=== PATIENT | female | born 1980 | race Two or more races ===

== ENCOUNTER 2023-08-09 05:48 | Day surgery (SDC) | payer OTHER ==
[2023-08-09] MEDS ORDERED: CEFAZOLIN SODIUM 1,000 MG VIAL ONE ×2 (07:03→07:41)
[2023-08-09] MEDS ORDERED: ENOXAPARIN SODIUM 40 MG/0.4 ML SYRINGE SUBCUTANEO ONE ×2 (07:28→11:15)
[2023-08-09] MEDS ORDERED: EPINEPHRINE HCL/PF 1 MG/ML AMPUL ONE (07:35)
[2023-08-09] MEDS ORDERED: LIDOCAINE HCL/EPINEPHRINE 10MG/ML 1% 50ML IJ ONE ×5 (07:44→11:15)
[2023-08-09] MEDS ORDERED: EPINEPHRINE HCL/PF 1 MG/ML AMPUL IJ ONE (11:15)
[2023-08-09] MEDS ORDERED: CEFAZOLIN SODIUM 1,000 MG in 0.9 % SODIUM CHLORIDE 50 ML IV ONE (11:15)
[2023-08-09] MEDS ORDERED: VANCOMYCIN HCL 1,000 MG VIAL ONE (12:59)
[2023-08-09] MEDS ORDERED: CLINDAMYCIN PHOSPHATE 150 MG/ML (600mg) ONE (12:59)
[2023-08-09] MEDS ORDERED: GENTAMICIN SULFATE 40 MG/ML VIAL ONE (12:59)
[2023-08-09] MEDS ORDERED: POVIDONE-IODINE 118 ML BOTT TOP ONE (13:48)
[2023-08-09] MEDS ORDERED: POVIDONE-IODINE 118 ML BOTT TOP SCH (14:00)
[2023-08-09] MEDS ORDERED: GENTAMICIN SULFATE 40 MG/ML VIAL IR SCH (14:15)
[2023-08-09] MEDS ORDERED: CLINDAMYCIN PHOSPHATE 150 MG/ML (600mg) IJ SCH (14:15)
[2023-08-09] MEDS ORDERED: VANCOMYCIN HCL 1,000 MG VIAL IR SCH (14:15)
[2023-08-09] MEDS ORDERED: SUGAMMADEX SODIUM 200 MG/2 ML VIAL IV ONE ×2 (17:03→17:45)
== END 2023-08-09 21:00 | disposition home or self-care (01) ==
LOC: CIR.AMB 05:48
PROVIDERS: ATTEND Specialist
DX: E65 Localized adiposity (principal); E66.09 Other obesity due to excess calories